=== PATIENT | male | born 1940 | race Caucasian/White ===

== ENCOUNTER 2018-05-27 21:20 | Inpatient (IN) | payer MEDICARE ==
[~2018-05-27] VITALS: Ht 182.9 cm; Wt 94.3 kg
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
[2018-05-28] MEDS ORDERED: AZELASTINE HCL6 ML EACH EYE (05:40)
[2018-05-28] MEDS ORDERED: FLOMAX0.4 MG PO (05:41)
[2018-05-28] MEDS ORDERED: ISOSORBIDE MONO60 M1 PO (05:42)
[2018-05-28] MEDS ORDERED: LASIX40 MG PO (05:43)
[2018-05-28] MEDS ORDERED: VIC-FORTE CAPSUL1 MG PO (05:44)
[2018-05-28] MEDS ORDERED: TRILEPTAL300 MG PO (05:45)
[2018-05-28] MEDS ORDERED: PROSCAR5 MG PO (05:45)
[2018-05-28] MEDS ORDERED: VITAMIN D250000 UNIT PO (05:47)
[2018-05-28] MEDS ORDERED: NEURONTIN 300300 MG PO (05:48)
[2018-05-28] MEDS ORDERED: GABAPENTIN100 MG PO (05:48)
[2018-05-28] MEDS ORDERED: ACETAMINOPHEN325 MG PO (05:49)
[2018-05-28] MEDS ORDERED: BAYER CHEWABLE81 MG PO (05:50)
[2018-05-28] MEDS ORDERED: PROTONIX40 MG PO (05:50)
[2018-05-28] MEDS ORDERED: DEPAKENE250 MG PO (05:52)
[2018-05-28] MEDS ORDERED: SEROQUEL200 MG PO (05:54)
[2018-05-28] MEDS ORDERED: COLACE100 MG PO (05:54)
[2018-05-28 06:33] VITALS: BP 137/71; BMI 29.0
[2018-05-28 06:42] LABS: BASOPHILS 0.4 % (0-2); HEMATOCRIT 40.3 % (42.0-54.0); HEMOGLOBIN 13.6 g/dL (13.5-17.5); IMMATURE GRANULOCYTES 0.1 % (0-5); LYMPHOCYTES 29.4 % (15-50); MCH 30.2 pg (26.0-34.0); MCHC 33.7 g/dL (31.0-37.0); MCV 89.4 fL (80.0-100.0); MEAN PLATELET VOLUME 9.5 fL (7.4-10.4); MONOCYTES 8.3 % (2-11); NEUTROPHILS 58.8 % (40-80); PLATELET COUNT 261 10x3/uL (130-400); RBC 4.51 10x6/uL (4.20-6.10); RDW 13.1 % (11.5-14.5)
[2018-05-28 07:10] LABS: ALBUMIN 3.2 g/dL (3.4-5.0); ALKALINE PHOSPHATASE 103 U/L (46-116); ALT (SGPT) 16 U/L (10-68); BILIRUBIN - TOTAL 0.38 mg/dL (0.2-1.3); CALC OSMOLALITY 274 mosm/kg (275-300); CALCIUM 8.5 mg/dL (8.5-10.1); CARBON DIOXIDE 27.2 mmol/L (21.0-32.0); CHLORIDE - SERUM 100 mmol/L (98-107); CHOL - HDL RATIO 4.2 ratio (2.3-4.9); CHOLESTEROL, TOTAL 157 mg/dL (0-200); CREATININE - SERUM 0.7 mg/dL (0.6-1.3); GLUCOSE 94 mg/dL (74-106); HDL CHOLESTEROL 37 mg/dL (32-96); LDL CHOLESTEROL 107 mg/dL (0-100); LDL-HDL RATIO 2.9 ratio (1.5-3.5); POTASSIUM - SERUM 3.7 mmol/L (3.5-5.1); PROTEIN - SERUM 6.8 g/dL (6.4-8.2); SODIUM 137 mmol/L (136-145); THYROID STIMULATING HORMONE 1.16 uIU/mL (0.36-3.74); TRIGLYCERIDE 65 mg/dL (30-200); UREA NITROGEN 15 mg/dL (7-18); eGFR NON AFRICAN AMERICAN > 90 mL/min (90-120)
[2018-05-28 08:08] VITALS: BP 129/80
[2018-05-28 08:20] VITALS: BP 142/93
[2018-05-28 11:05] VITALS: BMI 29.0
--- NOTE | 2018-05-28 11:10 | NUR ---
PT HAS A HX OF TARDIVE DYSKINESIA AND A SLIGHT IRREGULAR MOVEMENT IS NOTED TO HIS TONGUE. PT WAS SEEN TALKING TO UNSEEN OTHERS BUT DENIES HALLUCINATIONS AT THIS TIME. ORIENT TO PERSON ONLY. FALL PRECAUTIONS IN PLACE. SPOKE WITH BRITTANY SANDERSON FROM [facility] [phone]. REVIEWED TX PLAN AND PTS BEHAVIOR AT THIS TIME. MEDICATIONS GIVEN ORDERED. WILL CONTINUE TO MONITOR AND CONTINUE WITH PLAN OF CARE.
[2018-05-28 13:44] VITALS: Ht 182.9 cm; Wt 94.3 kg
[2018-05-28 21:21] VITALS: BP 140/70
--- NOTE | 2018-05-29 04:12 | NUR ---
B) Patient is alert and oriented to person, calm and cooperative this shift, no aggression noted, I) Administered scheduled medications as ordered, monitored for safety R) Mediation compliant, sleep quietly this shift, P) Continue plan of care.
[2018-05-29 07:31] LABS: RAPID PLASMA REAGIN Non Reactive (Non Reactive); VITAMIN D 25 HYDROXY 44.4 ng/mL (30.0-100.0)
[2018-05-29 09:17] LABS: FOLATE (FOLIC ACID) - SERUM 18.5 ng/mL (>3.0)
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
[2018-05-29 15:43] VITALS: BP 150/66
--- NOTE | 2018-05-29 17:11 | NUR ---
HALDOL 5MG AND ATIVAN 1MG PO GIVEN PER ORDERS FOR AGGITATION.OBSERVED TALKING ANGRILY TO UNSEEN PERSON.
[2018-05-29 19:58] VITALS: BP 131/54
--- NOTE | 2018-05-30 03:49 | NUR ---
B) Patient is alert and oriented to person, calm and cooperative this shift, talking to self at times, self isolates into the dinning room away from other residents, I) Administered scheduled medications as ordered,monitored for safety R) Mediation compliant, no aggression noted this shift P) Continue plan of care.
--- NOTE | 2018-05-30 07:27 | NUR ---
PT CONTINUES TO HALLUCINATE AND IS SEEN TALKING TO UNSEEN OTHERS. NO AGGRESSION THIS MORNING. REDIRECTED NEEDED. ENCOURAGED PT TO EXPRESS NEEDS TO STAFF. MEDICATIONS GIVEN ORDERED. FALL PRECAUTIONS MAINTAINED. WILL CONTINUE TO MONITOR AND CONTINUE WITH PLAN OF CARE.
[2018-05-30 08:09] VITALS: BP 125/67
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
--- NOTE | 2018-05-30 12:41 | PN ---
PATIENT:JACKELYN LIN MEDICAL RECORD: [id number] LOCATION:JANETT FrancesJose Antonio ADMISSION DATE: 05/27/18 PROGRESS NOTE DATE OF SERVICE: 05/29/2018 SUBJECTIVE: The patient's case was discussed with staff. He has no new complaint. OBJECTIVE: The patient is in good behavioral control. He has poor insight about his condition. He tolerates his medicines well. He was actively hallucinating earlier this morning. He was about to be given an injection, but calmed. ASSESSMENT: No change in diagnoses. PLAN: The patient will have his Depakote increased to 1000 mg daily. He will also have his Geodon increased to 40 mg twice daily. I am aware that this is an aggressive titration of his antipsychotic; however, this patient is very delusional, has made serious threats, and been quite aggressive. He is dangerous, and weighing the relative risk and benefit, I think that this is an appropriate and reasonable course. TRANSINT:[id number] Voice Confirmation ID: [id number] DOCUMENT ID: [id number] MATTIE MARTINEZ MD at 1241 CC: [id number] DICTATION DATE: 05/29/18 1613 YARN EXAMINER SKEINS: 05/29/18 1847 ADM IN [place] [id number] [place] [address]
--- NOTE | 2018-05-30 19:50 | NUR ---
PATIENT IS QUIET AND KEEPS TO HIMSELF, TALKS TO HIMSELF AT TIMES, EASILY REDIRECTED, COMPLIANT WITH MEDS, NO ADVERSE REACTION NOTED. WILL FOLLOW POC\
[2018-05-30 20:00] VITALS: BP 149/74
--- NOTE | 2018-05-31 07:30 | NUR ---
REC'D PT IN HALLWAY WITH PEERS. AWAKE AND ALERT. PT NOTED CLAPPING LOUDLY AT THIS TIME. REDIRECT AND REORIENT NEEDED. PT CALM AND COOPERATIVE WITH ASSESSMENT. NO AGGRESSION NOTED AT THIS TIME. PRESCRIBED MEDS PROVIDED. MED COMPLIANT. FALL PRECAUTIONS IN PLACE. WILL CONTINUE TO MONITOR Q 15 MINUTES FOR SAFETY. WILL CPOC.
[2018-05-31 08:26] VITALS: BP 156/85
--- NOTE | 2018-05-31 12:51 | PN ---
PATIENT:JACKELYN LIN MEDICAL RECORD: [id number] LOCATION:JANETT Healy ADMISSION DATE: 05/27/18 PROGRESS NOTE DATE OF SERVICE: 05/30/2018 SUBJECTIVE: The patient's case was discussed with staff. He has no new complaint. OBJECTIVE: The patient is in good behavioral control. He is tolerating his medicines well. ASSESSMENT: No change in diagnoses. PLAN: The increased dose of Geodon has not been problematic from a sedation standpoint. He is tolerating it well. I am going to keep the dose at this level for at least another day, and we will reassess his condition. He still is delusional and paranoid. He is taking very innocent remarks and blowing them out of proportion. He is delusional and paranoid. TRANSINT:[id number] Voice Confirmation ID: [id number] DOCUMENT ID: [id number] MATTIE MARTINEZ MD at 1251 CC: [id number] DICTATION DATE: 05/30/18 1248 TRAIN BRAKER: 05/30/18 1447 ADM IN [facility] [address] [place] [address]
[2018-05-31 20:00] VITALS: BP 131/75
--- NOTE | 2018-05-31 21:14 | NUR ---
PATIENT IS COMPLIANT WITH MEDS, SOMEWHAT DROWSY THIS EVENING, PATIENT DOES TALKK TO HIMSELF AT TIMES, PATIENT DOES GET AGITATED VERY QUICKLY BUT CALMS DOWN QUICKLY ALTHOUGH HE HASN'T DISPLAYED THIS BEHAVIOR THIS EVENING. NO ADVERSE REACTION NOTED. WILL FOLLOW POC
[2018-06-01 07:00] VITALS: BP 152/77
--- NOTE | 2018-06-01 10:30 | NUR ---
REC'D PT IN HALLWAY WITH PEERS. PT IS VERY LIABLE. AWAKE AND ALERT WITH CONFUSION NOTED. PT HAS SUSPICIOUS BEHAVIOR. CLAPS LOUDLY FOR NO REASON AND TALKS WITH UNSEEN PEOPLE. CALM AND COOPERATIVE WITH ASSESSMENT. REDIRECT AND REORIENT NEEDED. PRN PROVIDED IF NEEDED. PRESCRIBED MEDS PROVIDED. MED COMPLIANT. FALL PRECAUTIONS IN PLACE. WILL CONTINUE TO MONITOR Q 15 MINUTES FOR SAFETY. WILL CPOC.
--- NOTE | 2018-06-01 15:53 | PN ---
PATIENT:JACKELYN LIN MEDICAL RECORD: [id number] LOCATION:JANETT Healy ADMISSION DATE: 05/27/18 PROGRESS NOTE DATE OF SERVICE: 05/31/2018 SUBJECTIVE: The patient's case was discussed with staff. He has no new complaint. OBJECTIVE: The patient is delusional, but not threatening or aggressive. He did not sleep last night. He attributes this to a runny nose. ASSESSMENT: No change in diagnoses. PLAN: The patient will have his Neurontin discontinued secondary to lack of clinical indication. I am going to start him on a low dose of Klonopin to assist with his impulsivity. In addition to this, I am going to maintain his other medicines and check a Depakote level. I have explained to the staff again the high risk nature of his condition and instructed them to give him p.r.n. medicines at a much lower threshold than other patients and that he is a potentially dangerous and violent man in a very serious way and that, with the slightest escalation, this should be addressed before he becomes dangerous. TRANSINT:[id number] Voice Confirmation ID: [id number] DOCUMENT ID: [id number] MATTIE MARTINEZ MD at 1553 CC: [id number] DICTATION DATE: 05/31/18 1256 REAMER HAND: 05/31/18 1757 ADM IN [place] [id number] [place] [address]
[2018-06-01 20:27] VITALS: BP 143/80
--- NOTE | 2018-06-02 02:44 | NUR ---
B) Patient is alert and oriented to self, calm and cooperative, I) Administered scheduled medications as ordered, monitored for safety R) Mediation compliant, pleasant and friendly P) Continue plan of care.
[2018-06-02 08:30] VITALS: BP 144/80
--- NOTE | 2018-06-02 12:41 | NUR ---
Nutrition Follow Up: Pt is eating 100% meal avg on a regular diet. +BM 06/01/18. Labs and meds reviewed. Pt continues at low nutritional risk at this time. RD following.
--- NOTE | 2018-06-02 15:32 | PN ---
PATIENT:JACKELYN LIN MEDICAL RECORD: [id number] LOCATION:AdolfoMARYELLENMark FrancesJose Antonio ADMISSION DATE: 05/27/18 PROGRESS NOTE DATE OF SERVICE: 06/01/2018 SUBJECTIVE: The patient's case was discussed with staff. He has no new complaint. OBJECTIVE: The patient is significantly calmer than he was yesterday. He seems to be tolerating his medicines well. He has not been aggressive with the staff. ASSESSMENT: No change in diagnoses. PLAN: Current medicines have been reviewed. I am going to check a Depakote level. His long-term prognosis is guarded. TRANSINT:[id number] Voice Confirmation ID: [id number] DOCUMENT ID: [id number] MATTIE MARTINEZ MD at 1532 CC: [id number] DICTATION DATE: 06/01/18 170 SOLE TACKER: 06/01/18 1808 ADM IN [place] [id number] [place] [id number]
[2018-06-02 21:16] VITALS: BP 134/62
--- NOTE | 2018-06-03 02:32 | NUR ---
B) PATIENT IS ALERT AND ORIENTED TO SELF, SAT CALMLY ON SIDE OF BED HALLUCINATING TO UNSEEN OTHERS. NO AGGRESSION NOTED. I) ADMINISTERED SCHEDULED MEDICATIONS, FALL PRECAUTIONS MAINTAINED. R) MEDICATION COMPLIANT, UNABLE TO GET HIM TO LAY IN BED, BUT BRIEF PERIODS. P) MONITOR FOR BEHAVIORAL CHANGES AND CONTINUE PLAN OF CARE.
[2018-06-03 08:08] VITALS: BP 146/68
--- NOTE | 2018-06-03 11:31 | NUR ---
B) PT IS ALERT AND ORIENTED TO SELF. HALLUCINATING TO UNSEEN OTHERS. NO AGGRESSION NOTED. CALM AND COOPERATIVE WITH ASSESSMENT. I) ADMINISTERED SCHEDULED MEDICATIONS R) MED COMPLIANT P) WILL CPOC
--- NOTE | 2018-06-03 15:23 | PN ---
PATIENT:JACKELYN LIN MEDICAL RECORD: [id number] LOCATION:JANETT Frances112 ADMISSION DATE: 05/27/18 PROGRESS NOTE DATE OF SERVICE: 06/02/2018 SUBJECTIVE: The patient's case was discussed with staff. He has no new complaint. OBJECTIVE: The patient has a subtherapeutic Depakote level of 29. He has been in reasonably good behavioral control. ASSESSMENT: No change in diagnoses. PLAN: Current medicines have been reviewed and will be maintained. Long-term prognosis is guarded. I am going to increase the Depakote to 1000 mg twice daily. TRANSINT:[id number] Voice Confirmation ID: [id number] DOCUMENT ID: [id number] MATTIE MARTINEZ MD at 1523 CC: [id number] DICTATION DATE: 06/02/18 1619 BEER RUNNER: 06/02/182010 ADM IN [place] [id number] [place] [address]
[2018-06-03 17:50] LABS: APPEARANCE CLEAR (CLEAR); BILIRUBIN NEGATIVE (NEGATIVE); COLOR YELLOW (YELLOW); GLUCOSE NEGATIVE (NEGATIVE); KETONE NEGATIVE (NEGATIVE); NITRITE NEGATIVE (NEGATIVE); PROTEIN NEGATIVE (NEGATIVE); UROBILINOGEN NORMAL (NORMAL)
[2018-06-03 17:51] LABS: AMORPHOUS SEDIMENT >1+ /lpf (NONE SEEN); BACTERIA MODERATE /hpf (NONE SEEN); EPITHELIAL CELLS OCC /hpf (0-5); WHITE CELLS - URINE OCC /hpf (0-5)
[2018-06-03 20:22] VITALS: BP 141/69
--- NOTE | 2018-06-04 00:54 | NUR ---
B) Patient is alert and oriented to person, calm and cooperative follows instruction, I) Administered scheduled medications as ordered, monitored for safety R) Mediation compliant, resting quietly in his bed, P) Continue plan of care.
[2018-06-04 07:36] VITALS: BP 163/90
--- NOTE | 2018-06-04 11:30 | NUR ---
B) The patient is awake and alert, oriented x3. He is pleasant. He ambulates well with a walker. He has not shown any aggression today. I) Provide prescribed meds. R) The patient is compliant with meds and unit milieu. P) Continue POC.
--- NOTE | 2018-06-04 15:20 | PN ---
PATIENT:JACKELYN LIN MEDICAL RECORD: [id number] LOCATION:JANETT FrancesJose Antonio ADMISSION DATE: 05/27/18 PROGRESS NOTE DATE OF SERVICE: 06/03/2018 SUBJECTIVE: The patient's case was discussed with staff. He has no new complaint. OBJECTIVE: The patient is tolerating his medicines well. His Klonopin and Depakote have been increased. He is much calmer and interacting in a much more appropriate manner. ASSESSMENT: No change in diagnoses. PLAN: Current medicines have been reviewed. I am going to prescribe trazodone to assist with sleep consolidation. His long-term prognosis is guarded. TRANSINT:[id number] Voice Confirmation ID: [id number] DOCUMENT ID: [id number] MATTIE MARTINEZ MD at 1520 CC: [id number] DICTATION DATE: 06/03/18 1553 UTILIZATION MANAGEMENT UM NURSE: 06/03/18 2300 ADM IN [place] [id number] [place] [id number]
[2018-06-04 20:47] VITALS: BP 109/63
--- NOTE | 2018-06-05 05:14 | NUR ---
B) Patient is alert and oriented to person, calm and cooperative I) Administered scheduled medications as ordered, R) Mediation compliant, pleasant and friendly toward staff P) Continue plan of care,
[2018-06-05 07:59] VITALS: BP 154/74
--- NOTE | 2018-06-05 11:32 | PN ---
PATIENT:JACKELYN LIN MEDICAL RECORD: [id number] LOCATION:JANETT Frances112 ADMISSION DATE: 05/27/18 PROGRESS NOTE DATE OF SERVICE: 06/04/2018 SUBJECTIVE: The patient's case was discussed with staff. He has no new complaint. OBJECTIVE: The patient is significantly calmer. He has limited insight. He makes some delusional statements, but he does not have anything close to the level of anger and agitation that he previously had had. ASSESSMENT: No change in diagnoses. PLAN: The patient will have a Depakote level checked tomorrow. His long-term prognosis is guarded. TRANSINT:[id number] Voice Confirmation ID: [id number] DOCUMENT ID: [id number] MATTIE MARTINEZ MD at 1132 CC: [id number] DICTATION DATE: 06/04/18 1552 LOCKS INSPECTOR: 06/04/18 1820 ADM IN [place] [id number] [place] [id number]
[2018-06-05 20:00] VITALS: BP 131/86
--- NOTE | 2018-06-05 22:04 | NUR ---
B) Patient is alert and oriented to person, hallucinating at times, talking to unseen people, I) Administered scheduled medication as ordered, monitored for safety R) Medication compliant, sleeping now, P) Continue plan of care.
[2018-06-06 08:26] VITALS: BP 177/93
--- NOTE | 2018-06-06 13:54 | NUR ---
ORIENTED TO SELF AND SHELTER.COMPLIANT WITH STAFF AND MEDS.OBSERVED HALLUCINATING,REACHING OUT FOR SOME UNSEEN OBJECT AND PULLING IT BACK,AND TALKING TO SOME UNSEEN PERSON.WILL CONTINUE WITH PLAN OF CARE,MONITOR FOR CHANGES AND SAFETY.
--- NOTE | 2018-06-06 21:14 | NUR ---
PATIENT IS QUIET MOST OF THE TIME AND KEEPS TO HIMSELF, AGITATED QUICKLY AND WILL CUSS AT STAFF BUT CONTINUES TO STAY TO HIMSELF. COMPLIANT WITH MEDS. WILL FOLLOW POC
[2018-06-06 22:58] VITALS: BP 146/83
--- NOTE | 2018-06-07 07:30 | NUR ---
REC'D PT IN HALLWAY WITH PEERS. AWAKE AND ALERT TO PERSON ONLY. CALM AND COOPERATIVE WITH ASSESSMENT. NO AGGRESSION NOTED. PRESCRIBED MEDS PROVIDED. MED COMPLIANT. FALL PRECAUTIONS IN PLACE. WILL CONTINUE TO MONITOR Q 15 MINUTES FOR SAFETY. WILL CPOC.
[2018-06-07 07:59] VITALS: BP 126/90
--- NOTE | 2018-06-07 13:40 | NUR ---
PT STATES" I WAS TRYING TO SIT IN MY WALKER SEAT, AT HOME MY WALKER HAS A SEAT" PT ASSESSED V/S 119/59,97.6,76,18,99% RA. DR. VELASQUEZ NOTIFIED NO NEW ODERS. NEURO CHECKS STARTED. TRIED TO CONTACT PG KAELA SALDIVAR. LEFT MESSAGE WITH ANSWERING SERVICE MIKE. PT. DENIES PAIN OR DISCOMFORT AT THIS TIME. NO PHYSICAL INJURY NOTED. WILL CONTINUE NEURO CHECKS AND WILL CONTINUE TO MONITOR Q 15 MINUTES FOR SAFETY.
--- NOTE | 2018-06-07 22:23 | NUR ---
PATIENT IS LABILE. COMPLIANT WITH MEDS, NO ADVERSE REACTION NOTED. WILL FOLLOW POC
[2018-06-07 22:25] VITALS: BP 118/62
[2018-06-08 08:00] VITALS: BP 141/85
--- NOTE | 2018-06-08 15:02 | NUR ---
PG RETURNED CALL FROM YESTERDAY R/G FALL. PG AWARE. PT STILL DENIES PAIN AT THIS TIME. WILL CONTINUE TO MONITOR Q 15 MINUTES FOR SAFETY.
[2018-06-08 21:06] VITALS: BP 136/76
--- NOTE | 2018-06-09 01:30 | NUR ---
RECEIVED IN PATIENT ROOM. RESTING IN BED WITH EYES OPEN. CALM AND COOPERATIVE WITH CARE AND ASSESSMENT. NO SIGNS OF AGITATION OR AGGRESSION. NO SIGNS OF HALLUCINATIONS. REDIRECT AND REORIENT NEEDED. RESTING IN BED WITH EYES CLOSED AT THIS TIME. CONTIUE PLAN OF CARE.
[2018-06-09 08:00] VITALS: BP 173/92
--- NOTE | 2018-06-09 11:00 | NUR ---
AWAKE AND ALERT TO PERSON AND PLACE. CALM AND COOPERATIVE WITH CARE AND ASSESSMENT. NO AGGRESSION OR HALLUCINATIONS NOTED. REDIRECT NEEDED. PROVIDE SCHEDULED MEDICATIONS. COMPLIANT WITH MEDICATIONS. COMTINUE PLAN OF CARE.
[2018-06-09 20:00] VITALS: BP 137/81
--- NOTE | 2018-06-09 22:08 | NUR ---
RECEIVED IN PATIENT ROOM. SITTING UP IN BED. CALM AND COOPERATIVE WITH CARE AND ASSESSMENT. NO SIGNS OF AGGRESSION. REDIRECT AND REORIENT NEEDED. RESTING IN BED WITH EYES CLOSED AT THIS TIME. CONTINUE PLAN OF CARE.
--- NOTE | 2018-06-10 07:20 | NUR ---
RECEIVED AT NURSES DESK STANDING AND REFUSED TO SIT IN A CHAIR. HE STARTED HALLUCINATING AND CURSING ABOUT ONE SUBJECT. THEN SUDDENLY CHANGED TONE AND CONVERSATION. HE WANTED TO GO TO BREAKFAST AT 0700 AND GOT UPSET THAT IT WAS NOT HERE. REDIRECTED TO GO TO DINING ROOM AND HE CALMED DOWN.
[2018-06-10 08:23] VITALS: BP 153/71
--- NOTE | 2018-06-10 10:54 | NUR ---
Nutrition Follow Up: Chart reviewed. Pt is eating 99% meal avg on a regular diet. +BM 06/08/18. Meds and labs reviewed. Pt continues at low nutritional risk. RD following.
[2018-06-10 14:37] LABS: BASOPHILS 0.3 % (0-2); EOSINOPHILS 2.2 % (0-7); HEMATOCRIT 39.2 % (42.0-54.0); HEMOGLOBIN 12.8 g/dL (13.5-17.5); IMMATURE GRANULOCYTES 0.3 % (0-5); LYMPHOCYTES 22.6 % (15-50); MCH 29.8 pg (26.0-34.0); MCHC 32.7 g/dL (31.0-37.0); MCV 91.2 fL (80.0-100.0); MEAN PLATELET VOLUME 9.6 fL (7.4-10.4); MONOCYTES 9.7 % (2-11); NEUTROPHILS 64.9 % (40-80); PLATELET COUNT 271 10x3/uL (130-400); RDW 13.5 % (11.5-14.5); WBC 9.1 10x3/uL (4.8-10.8)
--- NOTE | 2018-06-10 20:36 | NUR ---
RECEIVED IN PATIENT ROOM. SITTING ON EDGE OF BED WHILE MHT TAKES VITALS. CALM AND COOPERATIVE WITH CARE AND ASSESSMENT. NO SIGNS OF AGGRESSION. REDIRECT AND REORIENT NEEDED. RESTING IN BED WITH EYES CLOSED AT THIS TIME. CONTINUE PLAN OF CARE.
[2018-06-11 00:47] VITALS: BP 125/67
[2018-06-11 07:16] VITALS: BP 142/80
--- NOTE | 2018-06-11 10:57 | NUR ---
B) The patient sits to himself and he talks to unseen others, he watchest TV, he sometimes yells out loudly, but he has not made any aggressive statements today and he has been calm. I) Provide prescribed meds. R) The patient is compliant with meds and unit milieu. P) Continue POC.
--- NOTE | 2018-06-11 15:50 | PN ---
PATIENT:JACKELYN LIN MEDICAL RECORD: [id number] LOCATION:JANETT Frances112 ADMISSION DATE: 05/27/18 PROGRESS NOTE DATE OF SERVICE: 06/05/2018 SUBJECTIVE: The patient's case was discussed with staff. He has a complaint about wanting to smoke and is not very receptive to being told he is not allowed to. OBJECTIVE: The patient has been in good behavioral control and has not been aggressive. He is still making delusional statements. He is on a reasonably high dose of Depakote and I am going to check a Depakote level. Other than that, he has been reasonably cooperative, eating very well, sleeping well and compliant with his medicines. ASSESSMENT: No change in diagnoses. PLAN: Current medicines and therapies will be maintained. Depakote level is pending and I will review his medications tomorrow. TRANSINT:[id number] Voice Confirmation ID: [id number] DOCUMENT ID: [id number] MATTIE MARTINEZ MD at 1550 CC: [id number] DICTATION DATE: 06/05/18 1041 MOBILE LOUNGE DRIVER OR OPERATOR: 06/05/18 1212 ADM IN [facility] [address] [place] [address]
--- NOTE | 2018-06-11 15:50 | PN ---
PATIENT:JACKELYN LIN MEDICAL RECORD: [id number] LOCATION:[facility] ADMISSION DATE: 05/27/18 PROGRESS NOTE DATE OF SERVICE: 06/10/2018 SUBJECTIVE: The patient's case was discussed with staff. He has no new complaint. OBJECTIVE: The patient denies intent to harm himself or others. He makes a number of delusional statements, but has not been aggressive. ASSESSMENT: No change in diagnoses. PLAN: The patient is tolerating his medicines well. Current medicines have been reviewed and will be maintained. Long-term prognosis is guarded. TRANSINT:[id number] Voice Confirmation ID: [id number] DOCUMENT ID: [id number] MATTIE MARTINEZ MD at 1550 CC: [id number] DICTATION DATE: 06/10/18 1641 FIELD CROP FARMING SUPERVISOR: 06/10/18 1737 ADM IN [place] [id number] [place] [id number]
--- NOTE | 2018-06-11 15:50 | PN ---
PATIENT:JACKELYN LIN MEDICAL RECORD: [id number] LOCATION:[facility] Frances112 ADMISSION DATE: 05/27/18 PROGRESS NOTE DATE OF SERVICE: 06/09/2018 SUBJECTIVE: The patient's case was discussed with staff. He has no new complaint. OBJECTIVE: The patient denies intent to harm himself or others. He tolerates his medicines well. He is much less delusional, much calmer and less aggressive. ASSESSMENT: No change in diagnoses. PLAN: The patient will have a Depakote level checked. His long-term prognosis is guarded. TRANSINT:[id number] Voice Confirmation ID: [id number] DOCUMENT ID: [id number] MATTIE MARTINEZ MD at 1550 CC: [id number] DICTATION DATE: 06/09/18 1631 HOUSEHOLD PERSONAL ASSISTANT: 06/09/18 1650 ADM IN [place] [id number] [place] [id number]
[2018-06-11] MEDS ORDERED: LISINOPRIL10 MG PO (16:57)
[2018-06-11] MEDS ORDERED: ALLEGRA D PO (16:57)
[2018-06-11] MEDS ORDERED: DEPAKOTE500 MG PO (16:58)
[2018-06-11] MEDS ORDERED: DESERYL PO (16:58)
[2018-06-11] MEDS ORDERED: KLONOPIN0.5 MG PO (16:59)
[2018-06-11] MEDS ORDERED: GEODON40 MG PO (16:59)
--- NOTE | 2018-06-11 20:09 | NUR ---
RECEIVED IN PATIENT ROOM. GETTING READY FOR BED. CALM AND COOPERATIVE WITH CARE AND ASSESSMENT. NO SIGNS AGGRESSION OR AGITATION. NO SIGNS OF HALLUCINATIONS. REDIRECT AND REORIENT NEEDED. RESTING IN BED WITH EYES OPEN AT THIS TIME. CONTINUE PLAN OF CARE.
[2018-06-11 21:52] VITALS: BP 138/71
[2018-06-12 09:31] VITALS: BP 126/84
--- NOTE | 2018-06-12 09:58 | NUR ---
CALLED REPORT TO [facility] AND SENT A COPY OF THE EKG FOR THEIR RECORDS FOR THE [facility] ORDER. ALL PAPERWORK FAXED 06-11-18 AND COPIES SENT WITH PT UPON DISCHARGE. PT IS CALM COOPERATIVE WITH NO SIGNS OF AGGRESSION. MEDICATION TAKEN AND GIVEN ORDERED. FALL PRECAUTIONS IN PLACE. WILL CONTINUE TO MONITOR AND CONTINUE WITH PLAN OF CARE.
--- NOTE | 2018-06-12 13:53 | PN ---
PATIENT:JACKELYN LIN MEDICAL RECORD: [id number] LOCATION:[facility] Frances112 ADMISSION DATE: 05/27/18 PROGRESS NOTE DATE OF SERVICE: 06/11/2018 SUBJECTIVE: The patient's case was discussed with staff. He has no new complaint. OBJECTIVE: The patient denies intent to harm himself or others. He is tolerating his medicines well. ASSESSMENT: No change in diagnoses. PLAN: Supportive and educational interventions were made. Long-term prognosis is guarded. He is going to be maintained on current medicines and transitioned back to the [facility] today. TRANSINT:[id number] Voice Confirmation ID: [id number] DOCUMENT ID: [id number] MATTIE MARTINEZ MD at 1353 CC: [id number] DICTATION DATE: 06/11/18 170 MANUFACTURE SPECIALIST: 06/11/18 2238 DIS IN 06/12/18 [place] [id number] [place] [address]
--- NOTE | 2018-06-16 12:02 | DS ---
PATIENT:JACKELYN LIN :42 MEDICAL RECORD: [id number] DISCHARGE SUMMARY ADMISSION DATE: 05/27/18 DISCHARGE DATE: 06/12/18 IDENTIFYING DATA: The patient is 78 years old and he was admitted to the hospital on a voluntary basis. CHIEF COMPLAINT: Aggression. HISTORY OF PRESENT ILLNESS: The patient has a long history of mental illness and lives at the [facility]. He became increasingly combative there, has been breaking plates and delusional. He is referred because of these behaviors along with auditory and visual hallucinations. HOSPITAL COURSE: The patient was admitted to the hospital and fully evaluated from both the medical, psychological, and social standpoint. He was treated with both antipsychotic and mood stabilizing medications and showed improvement. DISCHARGE DIAGNOSES: AXIS I: Schizoaffective disorder, bipolar type and senile dementia of the Alzheimer's type. AXIS II: None. AXIS III: Hypertension, hyperlipidemia, osteoarthritis, and peripheral neuropathy. AXIS IV: Moderate. AXIS V: Global Assessment Of Functioning is 35. PLAN: At the time of discharge, the patient is in good behavioral control with limited insight about his condition. He is tolerating his medicines well. Followup is to be with his primary care physician and the intermediate psychiatrist. TRANSINT:[id number] Voice Confirmation ID: [id number] DOCUMENT ID: [id number] MATTIE MARTINEZ MD at 1202 CC: [id number] DICTATION DATE: 06/15/18 1606 RACK LOADER: 06/16/18 0350 DIS IN 06/12/18 [place] [id number] [place] [id number]
== END 2018-06-12 10:43 | DRG 57 ==
LOC: D.PSYCH 21:20
PROVIDERS: Family Medicine; ADMIT Psychiatry & Neurology Psychiatry
DX: G30.1 Alzheimer's disease with late onset (principal); F02.81 Dementia in other diseases classified elsewhere, unspecified severity, with behavioral disturbance; F25.0 Schizoaffective disorder, bipolar type; I10 Essential (primary) hypertension; E78.5 Hyperlipidemia, unspecified; M19.90 Unspecified osteoarthritis, unspecified site; G62.9 Polyneuropathy, unspecified; I25.10 Atherosclerotic heart disease of native coronary artery without angina pectoris; N40.0 Benign prostatic hyperplasia without lower urinary tract symptoms; E55.9 Vitamin D deficiency, unspecified; K59.09 Other constipation; J06.9 Acute upper respiratory infection, unspecified; L21.9 Seborrheic dermatitis, unspecified; G47.00 Insomnia, unspecified; Z72.0 Tobacco use